=== PATIENT | female | born 2000 | race Caucasian/White ===

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

== ENCOUNTER 2019-03-12 13:12 | Outpatient (CLI) | payer OTHER ==
[~2019-03-12] VITALS: Ht 162.6 cm; Wt 78.2 kg
[2019-03-12 13:32] VITALS: Ht 162.6 cm; Wt 78.2 kg
[2019-03-12 13:33] VITALS: BP 117/62; PULSE 88; RESP 18
--- NOTE | 2019-03-12 15:08 | PN ---
Triage Information Date/Time Reason for visit: DFM Weeks of Gestation 31+ /Para n/a Diabetes: none Hypertention: none Objective Vital Signs Date Temp Pulse Resp B/P (MAP) Pulse Ox O2 O2 Flow FiO2 Time Delivery Rate 03/12/19 98.3 88 18 117/62 13:33 (80) Heart Rate: 140's Contractions: None Disposition: Discharge Assessment/Plan +FM BPP 06/27 Questions answered Precautions discussed Follow up with provider ROBERTA CASE M.D. Mar 12, 2019 15:08
--- NOTE | 2019-03-12 15:25 | TRIAGE ---
OB Triage Datetime Report Generated by CPN: 03/12/2019 15:25 Datetime: 03/12/2019 15:04 Stage of : OB Triage Datetime: 03/12/2019 14:47 Stage of : OB Triage Datetime: 03/12/2019 14:46 Labor Evaluation Frequency: 0 Monitor Mode: External Pattern: Normal: <= 5 Contractions in 10 Minutes Resting Tone [place]: Relaxed Heart Rate FHR Baseline Rate: 135 Monitor Mode: External US Variability: Moderate 6-25 bpm Accelerations: 10X10 Decelerations: None Category: Category I Pain Assessment Pain Scale: 0 Pain Presence: None/Denies Pain Type: N/A Pain Goal: 3 Pain Relief Measures: Comfort Measures Datetime: 03/12/2019 14:04 Stage of : OB Triage Datetime: 03/12/2019 13:52 Stage of : OB Triage Assessment Type: Triage Maternal Assessment Level of Consciousness: Keenly Alert, Responsive DTR's/Clonus: DTRs 2+; No Clonus Headache: Denies Blurred Vision: No Respiratory Effort: Unlabored; Regular Rhythm; Equal Expansion Breath Sounds, Left: Clear and Equal Breath Sounds, Right: Clear and Equal Nausea/Vomiting: Denies RUQ Epigastric Pain: Denies Facial Edema: None Temperature Route: Axillary Fall Risk Assessment History of Falling: (0) No Secondary Diagnosis: (0) No Ambulatory Aid: (0) Bedrest/Nurse Assist IV Therapy: (0) No Gait: (0) Normal/Bedrest/Immobile Mental Status: (0) Oriented to Own Ability Fall Score: 0 Fall Risk Score Definition: No Risk: No action required Labor Evaluation Frequency: 0 Monitor Mode: External Pattern: Normal: <= 5 Contractions in 10 Minutes Resting Tone Kelli[place]: Relaxed Heart Rate FHR Baseline Rate: 135 Monitor Mode: External US Variability: Moderate 6-25 bpm Accelerations: 10X10 Decelerations: None Category: Category I Pain Assessment Pain Scale: 0 Pain Presence: None/Denies Pain Type: N/A Pain Goal: 3 Pain Relief Measures: Comfort Measures Datetime: 03/12/2019 13:44 Stage of : OB Triage Datetime: 03/12/2019 13:41 Time of Arrival: 03/12/2019 13:10 EGA: 30.5 Arrived By: Ambulatory Arrived From: Home Chief Complaint: C/O DFM, DENIES LEAKING, BLEEDING OR UC'S Movement: Decreased Contractions: Denies/Absent Rupture of Membranes: Denies Vaginal Bleeding: None Vaginal Discharge: Denies Recent Sexual Intercouse: Denies Abdominal Trauma: Not Applicable Patient Complaints: None Time Provider Notified: 03/12/2019 14:04 Provider Notified: VANCE Initial Plan: MONITOR, BPP, CL
== END 2019-03-12 15:10 | disposition home or self-care (01) ==
LOC: OBT 13:12 → L-D 13:13 → OBT 15:10
PROVIDERS: ATTEND Obstetrics & Gynecology
DX: O36.8130 Decreased fetal movements, third trimester, not applicable or unspecified (principal); Z3A.31 31 weeks gestation of pregnancy
CPT/HCPCS: 76817; 76818; Z7500; G0463

== ENCOUNTER 2019-04-21 22:40 | Outpatient (CLI) | payer OTHER ==
[~2019-04-21 22:40] MED LIST changes: -ACET500C5 PO; -CEPH-443 PO; -FAMO-96 PO; -ONDA4TAB14 PO; +PNV11TAB PO
--- NOTE | 2019-04-21 23:23 | PN ---
Triage Information Date/Time Reason for visit: SROM Weeks of Gestation 18-year-old 1 para 0 at 36 weeks and 3 days of gestation with estimated date of delivery May 16, 2019 Patient presents with chief complaint of leaking fluid She reports positive movement, denies vaginal bleeding or uterine contractions /Para 1 para 0 Diabetes: none Hypertention: none Objective Heart Rate: 140's Heart Rate Comments heart rate tracing category 1 Contractions: None Results/Medications Results 24 hrs ROM plus negative Urine Results - 72 Hrs Test 04/21/19 22:41 Urine Color YELLOW (YELLOW) Urine Clarity SLIGHTLY CLOUDY (CLEAR) Urine pH 6.0 (5.0-9.0) Urine Specific [place] 1.020 (1.003-1.030) Urine Ketones NEGATIVE mg/dL (NEGATIVE) Urine Nitrite NEGATIVE mg/dL (NEGATIVE) Urine Bilirubin NEGATIVE mg/dL (NEGATIVE) Urine Urobilinogen NEGATIVE mg/dL (NEGATIVE) Urine Leukocyte Esterase 1+ Bernice/ul (NEGATIVE) H Urine Microscopic RBC 1 /HPF (0-5) Urine Microscopic WBC 5 /HPF (0-5) Urine Squamous Epithelial Cells FEW /HPF (FEW) Urine Calcium Oxalate Crystals FEW /HPF (NONE SEEN) A Urine Bacteria FEW /HPF (NONE SEEN) A Urine Mucus FEW /HPF (NONE SEEN) A Urine Hemoglobin NEGATIVE mg/dL (NEGATIVE) Urine Glucose NEGATIVE mg/dL (NEGATIVE) Urine Total Protein NEGATIVE mg/dl (NEGATIVE) Imaging Results PROCEDURE: US OB. CLINICAL INDICATION: Size and dates , labor TECHNIQUE: Multiple sonographic images of the pelvis and gravid uterus were obtained. The images were reviewed on a PACS workstation. COMPARISON: US PELVIS 03/12/2019 FINDINGS: Gestation: Single live intrauterine gestation. Cardiac activity: 146 beats per minute. Presentation: Vertex. Placenta: Location: Fundal Appearance: No previa or abruption. Measurements: BPD = 9.1 cm, 36 weeks and 6 days HC = 32.5 cm, 36 weeks and 6 days AC = 31.7 cm, 35 weeks and 5 days FL = 7.1 cm, 36 weeks and 1 day Gestational Age: AUA estimated gestational age: 36 weeks 3 days LMP estimated gestational age: 36 weeks 3 days AUA estimated date of delivery: 05/16/19 The EFW = 2838 g, 42.7%ile based on LMP age. RPTAT: AA IMPRESSION: Single live intrauterine gestation of 36 weeks 3 days by ultrasound criteria. .Shivam Morrell MD, MD Date Time Electronically viewed and signed by .Shivam Morrell MD, MD on 04/21/2019 23:16 .S/ CC: JOSE ESCALERA MD [phone] PROCEDURE: US OB biophysical profile. CLINICAL INDICATION: decreased movements, leaking fluid TECHNIQUE: Multiple sonographic images of the pelvis were obtained. The images were reviewed on a PACS workstation. COMPARISON: 03/12/2019 FINDINGS: There is a single live intrauterine gestation. Cardiac activity is present with 131 beats per minute. There is a vertex presentation. The placenta is fundal. There is no evidence of placental abruption. RODGER = 9.4 cm. Biophysical profile: movement 2/2 tone 2/2. breathing 2/2 RODGER 2/2 Total 04/25 RPTAT: AA . IMPRESSION: Normal biophysical profile. .Shivam Morrell MD, MD Date Time Electronically viewed and signed by .Shivam Morrell MD, MD on 04/21/2019 23:18 .S/ CC: JOSE ESCALERA MD [phone] Disposition: Discharge Assessment/Plan kick count instructions were given Labor precautions were given Patient instructed to follow-up with [facility] in 1 to 2 days YVON KYLE MD Apr 21, 2019 23:23
--- NOTE | 2019-04-22 00:08 | TRIAGE ---
OB Triage Datetime Report Generated by CPN: 04/22/2019 00:07 Datetime: 04/21/2019 23:46 Stage of : OB Triage Labor Evaluation Monitor Mode: External Duration (sec)2399: 10 Quality: Mild Pattern: Normal: <= 5 Contractions in 10 Minutes Resting Tone [place]: Relaxed Heart Rate FHR Baseline Rate: 130 Monitor Mode: External US FHR Baseline Changes: No Baseline Change Variability: Moderate 6-25 bpm Accelerations: 15X15 Decelerations: None Category: Category I Datetime: 04/21/2019 23:10 Stage of : OB Triage Datetime: 04/21/2019 22:51 Stage of : OB Triage Datetime: 04/21/2019 22:47 Stage of : OB Triage Maternal Assessment Level of Consciousness: Keenly Alert, Responsive DTR's/Clonus: DTRs 2+; No Clonus Headache: Generalized Blurred Vision: No Respiratory Effort: Unlabored Nausea/Vomiting: Denies RUQ Epigastric Pain: Denies Facial Edema: None Labor Evaluation Monitor Mode: External Resting Tone [place]: Relaxed Heart Rate FHR Baseline Rate: 140 Monitor Mode: External US Pain Assessment Pain Scale: 3 Pain Presence: Constant Pain Type: Ache Pain Location: Head Datetime: 04/21/2019 22:45 Time of Arrival: 04/21/2019 22:30 EGA: 36.3 Arrived By: Wheelchair Arrived From: Home Chief Complaint: 18yo c/o leaking sm amt fluid x1 at 2130 Movement: Present Contractions: Denies/Absent Rupture of Membranes: Unsure Vaginal Bleeding: None Vaginal Discharge: Present Recent Sexual Intercouse: Denies Abdominal Trauma: Not Applicable Patient Complaints: Other Time Provider Notified: 04/21/2019 22:50 Provider Notified: Dr Ferro Initial Plan: EFM,ROM+,UA,URINE CULTURE,BPP,EFW Datetime: 03/12/2019 13:52 Fall Risk Assessment Fall Score: 0 Fall Risk Score Definition: No Risk: No action required Datetime: 03/12/2019 13:41 EGA: 30.5
== END 2019-04-21 23:52 | disposition home or self-care (01) ==
LOC: OBT 22:40 → L-D 22:41 → OBT 23:52
PROVIDERS: ATTEND Obstetrics & Gynecology
DX: O42.913 Preterm premature rupture of membranes, unspecified as to length of time between rupture and onset of labor, third trimester (principal); Z3A.36 36 weeks gestation of pregnancy
CPT/HCPCS: 76815; 76818; 81001; 84112; 87086; Z7500; G0463

== ENCOUNTER 2019-05-09 11:10 | Outpatient (CLI) | payer OTHER ==
[~2019-05-09] VITALS: Ht 162.6 cm; Wt 84.4 kg
[~2019-05-09 11:10] MED LIST changes: +IBUP-1542 PO
[2019-05-09 11:41] VITALS: Ht 162.6 cm; Wt 84.4 kg
== END 2019-05-09 13:30 | disposition home or self-care (01) ==
LOC: OBT 11:10 → L-D 11:11 → OBT 13:30
PROVIDERS: ATTEND Obstetrics & Gynecology
DX: O26.893 Other specified pregnancy related conditions, third trimester (principal); R10.2 Pelvic and perineal pain; Z3A.39 39 weeks gestation of pregnancy
CPT/HCPCS: 76818; 81001; Z7500; 81003; G0463

== ENCOUNTER 2019-05-16 12:15 | Inpatient (IN) | payer OTHER ==
[~2019-05-16] VITALS: Ht 162.6 cm; Wt 85.0 kg
[2019-05-17] MEDS ORDERED: METHYLERGONOVINE 0.2 MG INJ IM PRN (12:30)
[2019-05-17] MEDS ORDERED: OXYTOCIN 30 UNITS/LR 500 ML IV SCH ×2 (12:30)
[2019-05-17] MEDS ORDERED: LIDOCAINE 1% (MPF) 30 ML INJ INJ PRN (12:30)
[2019-05-17] MEDS ORDERED: MISOPROSTOL 200 MCG TAB PR PRN (12:30)
[2019-05-17] MEDS ORDERED: CARBOPROST 250 MCG INJ IM PRN (12:30)
[2019-05-17] MEDS ORDERED: OXYTOCIN 30 UNITS/LR 500 ML IV PRN (12:30)
[2019-05-17] MEDS ORDERED: BUTORPHANOL 2 MG INJ IV PRN ×2 (12:30)
[2019-05-17] MEDS: LACTATED RINGER'S 1,000 ML IV SCH ×2 (12:41→18:30)
[2019-05-17] MEDS: MISOPROSTOL 50 MCG CAPSULE PO SCH ×3 (16:16→21:00)
[2019-05-17] MEDS ORDERED: MINERAL OIL LIGHT 10 ML VIAL TOP PRN (19:30)
[2019-05-18] MEDS: MISOPROSTOL 50 MCG CAPSULE PO SCH ×3 (01:00→09:00)
[2019-05-18 01:50] VITALS: Ht 162.6 cm; Wt 85.0 kg
[2019-05-18] MEDS: LACTATED RINGER'S 1,000 ML IV SCH ×2 (02:14→10:10)
[2019-05-18] MEDS ORDERED: OXYTOCIN 30 UNITS/LR 500 ML IV SCH (10:00)
[2019-05-18] MEDS ORDERED: LACTATED RINGER'S 1,000 ML IV PRN (15:11)
[2019-05-18] MEDS ORDERED: FENTAnyl 2MCG/ML-ROPIV 0.2% 100 ML ONE (15:28)
[2019-05-18] MEDS ORDERED: FENTAnyl 2MCG/ML-ROPIV 0.2% 100 ML BAG EPI SCH (16:00)
[2019-05-18] MEDS ORDERED: NALOXONE (0.4 MG/ML) INJ IV PRN (16:00)
[2019-05-18] MEDS ORDERED: ACETAMINOPHEN 500 MG TAB PO STA (19:33)
[2019-05-18] MEDS ORDERED: KETOROLAC 30 MG INJ IV STA (19:33)
[2019-05-18] MEDS ORDERED: LACTATED RINGER'S 1,000 ML IV* SCH (22:12)
[2019-05-18] MEDS ORDERED: MISOPROSTOL 200 MCG TAB PR PRN (22:30)
[2019-05-18] MEDS ORDERED: METHYLERGONOVINE 0.2 MG INJ IM PRN (22:30)
[2019-05-18] MEDS ORDERED: OXYTOCIN 30 UNITS/LR 500 ML IV PRN (22:30)
[2019-05-18] MEDS ORDERED: BENZOCAINE 20% 56 ML SPRAY TOP PRN (22:30)
[2019-05-18] MEDS ORDERED: WITCH HAZEL/GLYCERIN PAD PR PRN (22:30)
[2019-05-18] MEDS ORDERED: HYDROCODONE/APAP (5/325) TAB PO PRN ×2 (22:30)
[2019-05-18] MEDS ORDERED: DIBUCAINE 1% 30 GM OINT TOP PRN (22:30)
[2019-05-18] MEDS ORDERED: ZOLPIDEM 5 MG TAB PO PRN (22:30)
[2019-05-18] MEDS ORDERED: CARBOPROST 250 MCG INJ IM PRN (22:30)
[2019-05-18 22:35] VITALS: BP 119/63; PULSE 89; RESP 18
[2019-05-18] MEDS: LANOLIN HPA 1 PKT TOP PRN (23:34)
[2019-05-18] MEDS: CEPHALEXIN 500 MG CAP PO SCH (23:34)
[2019-05-19 01:00] VITALS: BP 121/72; PULSE 99; RESP 19
[2019-05-19 03:33] VITALS: BP 119/66; PULSE 88; RESP 17
[2019-05-19] MEDS: CEPHALEXIN 500 MG CAP PO SCH ×4 (05:38→23:54)
[2019-05-19] MEDS: IBUPROFEN 600 MG TAB PO SCH ×5 (05:39→23:55)
[2019-05-19 08:00] VITALS: BP 113/55; PULSE 79; RESP 18
[2019-05-19] MEDS: SENNA/DOCUSATE NA (8.6MG/50MG) TAB PO SCH ×2 (08:43→21:40)
[2019-05-19] MEDS: MAGNESIUM HYDROXIDE 30ML CUP PO SCH ×2 (08:43→21:40)
[2019-05-19 15:54] VITALS: BP 105/61; PULSE 77; RESP 18
[2019-05-19 20:10] VITALS: BP 116/73; PULSE 86; RESP 18
[2019-05-19] MEDS: LANOLIN HPA 1 PKT TOP PRN (21:40)
[2019-05-20 03:30] VITALS: BP 109/58; PULSE 76; RESP 18
[2019-05-20] MEDS: CEPHALEXIN 500 MG CAP PO SCH ×2 (05:31→12:16)
[2019-05-20] MEDS: IBUPROFEN 600 MG TAB PO SCH ×2 (05:32→12:15)
[2019-05-20 08:30] VITALS: BP 120/75; PULSE 77; RESP 14
[2019-05-20] MEDS ORDERED: DIPHTH/TET/ACEL PERTUSS (ADULT) 0.5 ML VIAL IM* ONE (09:00)
[2019-05-20] MEDS ORDERED: MEASLES,MUMPS,RUBELLA VACCINE INJ SC* ONE (09:00)
[2019-05-20] MEDS ORDERED: VARICELLA VACCINE LIVE/PF 1,350 UNIT/0.5 ML ML SC* ONE (09:00)
[2019-05-20] MEDS: SENNA/DOCUSATE NA (8.6MG/50MG) TAB PO SCH (09:27)
[2019-05-20] MEDS: MAGNESIUM HYDROXIDE 30ML CUP PO SCH (09:27)
== END 2019-05-20 15:00 | disposition home or self-care (01) | DRG 807 ==
LOC: EDSTATUS 12:15 → L-D 05-17 11:41 → OBT 05-17 11:41 → L-D 05-17 12:17 → MS1 05-18 21:53
PROVIDERS: ADMIT Obstetrics & Gynecology; ATTEND Obstetrics & Gynecology
PROC: 3E0P7VZ Introduction of Hormone into Female Reproductive, Via Natural or Artificial Opening (ICD-10-PCS; 2019-05-17)
PROC: 10E0XZZ Delivery of Products of Conception, External Approach (ICD-10-PCS; principal; 2019-05-18)
PROC: 0KQM0ZZ Repair Perineum Muscle, Open Approach (ICD-10-PCS; 2019-05-18)
DX: O48.0 Post-term pregnancy (principal); Z37.0 Single live birth; Z3A.40 40 weeks gestation of pregnancy; O70.1 Second degree perineal laceration during delivery
CPT/HCPCS: 62322; 76815; 85025; 85610; 85730; 86592; 86850; 86900; 86901; 87340; 90715; 90716; J0595; J1885; J2590; J3010; J7120